=== PATIENT | female | born 1935 | race Caucasian/White ===

== ENCOUNTER 2019-07-14 07:19 | Inpatient (IN) ==
[2019-07-14 07:55] LABS: Basophils % 0.5 % (0.0-0.8); Hematocrit 39.3 VOL% (35.7-47.0); Hemoglobin 13.2 GM/DL (12.0-16.0); Immature Granulocytes % 0.5 %; Immature Granulocytes Absolute 0.04 #; Lymphocytes # 0.6 10*3/uL (1.4-4.0); Lymphocytes % 7.1 % (21.3-54.2); Mean Corpuscular HGB Conc 33.6 GM/DL (32-36); Mean Corpuscular Volume 90.6 FL (87-102); Monocytes % 8.8 % (1.7-12.7); Neutrophils % 83.1 % (38.7-73.9); Platelet Count 199 T/CUMM (130-400); Red Blood Count 4.34 MC/CUMM (3.8-5.5); Red Cell Distribution Width 12.6 % (9.3-17.3); White Blood Count 7.8 T/CUMM (4-12)
[2019-07-14 08:02] LABS: PT Patient Result 11.3 SECS (9.6-12.2); Partial Thromboplastin Time 26.7 SECS (20.8-36.0)
[2019-07-14 08:29] LABS: Bilirubin,Total 0.6 MG/DL (0.2-1.0); Calcium 9.7 MG/DL (8.5-10.1); Osmolality,Calculated 259.6 MOS/KG (273-304)
[2019-07-14] MEDS ORDERED: DILTIAZEM INJ 100 MG in SODIUM CHLORIDE 0.9% 100 ML IV SCH (08:30)
[2019-07-14] MEDS ORDERED: DILTIAZEM 50 MG/10 ML VIAL IV STA (08:30)
[2019-07-14 09:26] LABS: Apearance,Urine CLEAR (Clear); Bacteria,Urine Occasional /HPF (Few); Bilirubin,Urine Negative (Negative); Blood, Urine Large mg/dL (Negative); Glucose,Urine (UA) 150 mg/dL (Negative); Ketones,Urine 5 mg/dL (Negative); Mucus,Urine Occasional /LPF (Occasional); Nitrite,Urine Negative (Negative); Protein,Urine 100 MG/DL; RBC,Urine 50 /HPF (0-4); Squamous Epithelial Cell,Urine Occasional /HPF (0-10); Urine Color Yellow (Yellow); Urine Specific Gravity 1.018 (1.001-1.035); Urine Urobilinogen < 2.0 EU/DL (0.2-1.0); WBC,Urine <1 /HPF (0-6)
[2019-07-14] MEDS ORDERED: cefTRIAXone 1,000 MG in SODIUM CHLORIDE 0.9% 100 ML IV STA (09:35)
[2019-07-14] MEDS ORDERED: ACETAMINOPHEN 325 MG TABLET PO PRN (09:45)
[2019-07-14] MEDS ORDERED: ONDANSETRON 4 MG/2 ML VIAL IV PRN (09:45)
[2019-07-14] MEDS ORDERED: NITROGLYCERIN SL 0.4 MG TABLET SL PRN (09:47)
[2019-07-14] MEDS ORDERED: SODIUM CHLORIDE 0.45% 1,000 ML IV SCH (10:00)
[2019-07-14] MEDS ORDERED: GLUCAGON 1 MG VIAL IM PRN (11:06)
[2019-07-14] MEDS ORDERED: DEXTROSE 10% 250 ML BAG IV PRN (11:06)
[2019-07-14] MEDS ORDERED: ENOXAPARIN 40 MG/0.4 ML SYRINGE SUBCUT SCH (13:00)
[2019-07-14] MEDS: INSULIN LISPRO 100 UNIT/ML SUBCUT SCH ×3 (13:34→20:42)
[2019-07-14] MEDS: dilTIAZem Drip 125 MG/125 ML PREMIX IV SCH ×2 (14:24→18:10)
[2019-07-14] MEDS: POTASSIUM CHLORIDE 20 MEQ TABLET PO PRN ×2 (15:55→20:41)
[2019-07-14] MEDS ORDERED: POTASSIUM CHLORIDE 20 MEQ TABLET PO ONE (15:58)
[2019-07-14] MEDS ORDERED: FUROSEMIDE 20 MG/2 ML VIAL IV ONE (16:05)
[2019-07-14] MEDS: SODIUM CHLORIDE 0.9% 1,000 ML IV SCH (16:31)
[2019-07-14] MEDS ORDERED: MAGNESIUM SULF RIDER 2 GM in PREMIX 1 EACH IV ONE (19:00)
[2019-07-14] MEDS: FLECAINIDE 50 MG TABLET PO SCH (20:42)
[2019-07-14] MEDS: lisinopriL 20 MG TABLET PO SCH (20:42)
[2019-07-14] MEDS: DOCUSATE SODIUM 100 MG CAPSULE PO SCH (20:42)
[2019-07-14] MEDS: traZODone 50 MG TABLET PO SCH (20:42)
[2019-07-14] MEDS: METOPROLOL SUCCINATE XL 50 MG TABLET PO SCH (20:42)
[2019-07-14] MEDS: SIMVASTATIN 20 MG TABLET PO SCH (20:42)
[2019-07-14] MEDS ORDERED: APIXABAN 2.5 MG TABLET PO SCH (21:00)
[2019-07-14] MEDS ORDERED: METOPROLOL SUCCINATE XL 25 MG TABLET PO SCH (21:00)
[2019-07-15] MEDS: SODIUM CHLORIDE 0.9% 1,000 ML IV SCH ×2 (04:36→14:56)
[2019-07-15 06:18] LABS: Basophils % 0.8 % (0.0-0.8); Eosinophils % 0.3 % (0.00-10.9); Hematocrit 36.7 VOL% (35.7-47.0); Hemoglobin 12.4 GM/DL (12.0-16.0); Immature Granulocytes % 0.3 %; Immature Granulocytes Absolute 0.01 #; Lymphocytes # 1.2 10*3/uL (1.4-4.0); Lymphocytes % 29.1 % (21.3-54.2); Mean Corpuscular HGB Conc 33.8 GM/DL (32-36); Mean Corpuscular Volume 89.7 FL (87-102); Mean Platelet Volume 9.4 FL (9.6-12.0); Monocytes % 20.5 % (1.7-12.7); Platelet Count 180 T/CUMM (130-400); Red Blood Count 4.09 MC/CUMM (3.8-5.5); Red Cell Distribution Width 12.9 % (9.3-17.3)
[2019-07-15 06:32] LABS: Calcium 8.5 MG/DL (8.5-10.1); Osmolality,Calculated 270.5 MOS/KG (273-304)
[2019-07-15 06:44] LABS: Eosinophils 2 % (0-10); Hypochromasia Slight; Lymphocytes 24 % (20-55); Ovalocytes Slight; Platelet Estimate Adequate; Segmented Neutrophils 51 % (50-85); Total Cells Counted 100
[2019-07-15] MEDS: ALBUTEROL/IPRATROPIUM 3 ML NEB RESP TX SCH ×3 (07:32→19:56)
[2019-07-15] MEDS: INSULIN LISPRO 100 UNIT/ML SUBCUT SCH ×4 (08:39→21:59)
[2019-07-15] MEDS ORDERED: CHLORTHALIDONE 25 MG TABLET PO SCH (09:00)
[2019-07-15] MEDS: PANTOPRAZOLE 40 MG TABLET PO SCH (09:51)
[2019-07-15] MEDS: POTASSIUM CHLORIDE 20 MEQ TABLET PO PRN (09:51)
[2019-07-15] MEDS: METOPROLOL SUCCINATE XL 50 MG TABLET PO SCH ×2 (09:51→21:54)
[2019-07-15] MEDS: lisinopriL 20 MG TABLET PO SCH ×2 (09:51→21:54)
[2019-07-15] MEDS: FLECAINIDE 50 MG TABLET PO SCH ×2 (09:51→21:55)
[2019-07-15] MEDS: DOCUSATE SODIUM 100 MG CAPSULE PO SCH ×2 (09:51→21:54)
[2019-07-15] MEDS: APIXABAN 2.5 MG TABLET PO SCH ×2 (09:52→21:55)
[2019-07-15] MEDS: CITALOPRAM 20 MG TABLET PO SCH (09:52)
[2019-07-15] MEDS: cefTRIAXone 500 MG in SYRINGE 1 EACH IV SCH (10:00)
[2019-07-15] MEDS: OSELTAMIVIR 75 MG CAPSULE PO SCH ×2 (12:26→21:54)
[2019-07-15] MEDS: dilTIAZem Drip 125 MG/125 ML PREMIX IV SCH (15:00)
[2019-07-15] MEDS: traZODone 50 MG TABLET PO SCH (21:54)
[2019-07-15] MEDS: DILTIAZEM CD 120 MG CAPSULE PO SCH (21:55)
[2019-07-15] MEDS: SIMVASTATIN 20 MG TABLET PO SCH (21:55)
[2019-07-16] MEDS: SODIUM CHLORIDE 0.9% 1,000 ML IV SCH (00:35)
[2019-07-16] MEDS: ALBUTEROL/IPRATROPIUM 3 ML NEB RESP TX SCH ×4 (00:35→20:30)
[2019-07-16] MEDS: INSULIN LISPRO 100 UNIT/ML SUBCUT SCH ×4 (08:12→21:48)
[2019-07-16] MEDS: FLECAINIDE 50 MG TABLET PO SCH ×2 (09:23→21:50)
[2019-07-16] MEDS: lisinopriL 20 MG TABLET PO SCH ×2 (09:23→21:49)
[2019-07-16] MEDS: PANTOPRAZOLE 40 MG TABLET PO SCH (09:24)
[2019-07-16] MEDS: METOPROLOL SUCCINATE XL 50 MG TABLET PO SCH ×2 (09:24→21:51)
[2019-07-16] MEDS: DILTIAZEM CD 120 MG CAPSULE PO SCH ×2 (09:24→21:48)
[2019-07-16] MEDS: POTASSIUM CHLORIDE 20 MEQ TABLET PO PRN (09:24)
[2019-07-16] MEDS: CITALOPRAM 20 MG TABLET PO SCH (09:24)
[2019-07-16] MEDS: OSELTAMIVIR 75 MG CAPSULE PO SCH ×2 (09:25→21:50)
[2019-07-16] MEDS: APIXABAN 2.5 MG TABLET PO SCH ×2 (09:25→21:50)
[2019-07-16] MEDS: DOCUSATE SODIUM 100 MG CAPSULE PO SCH ×2 (09:25→21:50)
[2019-07-16] MEDS: cefTRIAXone 500 MG in SYRINGE 1 EACH IV SCH (10:05)
[2019-07-16] MEDS: traZODone 50 MG TABLET PO SCH (21:49)
[2019-07-16] MEDS: SIMVASTATIN 20 MG TABLET PO SCH (21:51)
[2019-07-17] MEDS: ALBUTEROL/IPRATROPIUM 3 ML NEB RESP TX SCH ×4 (01:05→19:09)
[2019-07-17 06:14] LABS: Basophils % 0.4 % (0.0-0.8); Eosinophils # 0.1 10*3/uL (0.0-0.87); Eosinophils % 1.1 % (0.00-10.9); Hematocrit 34.5 VOL% (35.7-47.0); Hemoglobin 11.2 GM/DL (12.0-16.0); Immature Granulocytes % 0.7 %; Immature Granulocytes Absolute 0.03 #; Lymphocytes # 1.7 10*3/uL (1.4-4.0); Lymphocytes % 37.3 % (21.3-54.2); Mean Corpuscular HGB Conc 32.5 GM/DL (32-36); Mean Corpuscular Volume 93.8 FL (87-102); Mean Platelet Volume 9.1 FL (9.6-12.0); Neutrophils % 48.5 % (38.7-73.9); Platelet Count 165 T/CUMM (130-400); Red Blood Count 3.68 MC/CUMM (3.8-5.5); Red Cell Distribution Width 12.9 % (9.3-17.3); White Blood Count 4.6 T/CUMM (4-12)
[2019-07-17 06:36] LABS: Calcium 8.9 MG/DL (8.5-10.1)
[2019-07-17] MEDS: METOPROLOL SUCCINATE XL 50 MG TABLET PO SCH ×2 (09:34→21:24)
[2019-07-17] MEDS: lisinopriL 20 MG TABLET PO SCH ×2 (09:34→21:23)
[2019-07-17] MEDS: DOCUSATE SODIUM 100 MG CAPSULE PO SCH ×2 (09:34→21:24)
[2019-07-17] MEDS: DILTIAZEM CD 120 MG CAPSULE PO SCH ×2 (09:34→21:23)
[2019-07-17] MEDS: APIXABAN 2.5 MG TABLET PO SCH (09:35)
[2019-07-17] MEDS: POTASSIUM CHLORIDE 20 MEQ TABLET PO PRN (09:35)
[2019-07-17] MEDS: CITALOPRAM 20 MG TABLET PO SCH (09:36)
[2019-07-17] MEDS: OSELTAMIVIR 75 MG CAPSULE PO SCH ×2 (09:37→21:23)
[2019-07-17] MEDS: FLECAINIDE 50 MG TABLET PO SCH ×2 (09:37→21:23)
[2019-07-17] MEDS: PANTOPRAZOLE 40 MG TABLET PO SCH (09:37)
[2019-07-17] MEDS: cefTRIAXone 500 MG in SYRINGE 1 EACH IV SCH (09:41)
[2019-07-17] MEDS: INSULIN LISPRO 100 UNIT/ML SUBCUT SCH ×4 (12:32→21:24)
[2019-07-17] MEDS: SIMVASTATIN 20 MG TABLET PO SCH (21:23)
[2019-07-17] MEDS: traZODone 50 MG TABLET PO SCH (21:24)
[2019-07-18] MEDS: ALBUTEROL/IPRATROPIUM 3 ML NEB RESP TX SCH ×4 (00:55→19:03)
[2019-07-18 04:30] LABS: Basophils % 0.4 % (0.0-0.8); Eosinophils # 0.1 10*3/uL (0.0-0.87); Eosinophils % 1.4 % (0.00-10.9); Hematocrit 36.1 VOL% (35.7-47.0); Immature Granulocytes % 0.2 %; Immature Granulocytes Absolute 0.01 #; Lymphocytes # 1.9 10*3/uL (1.4-4.0); Lymphocytes % 34.3 % (21.3-54.2); Mean Corpuscular HGB Conc 33.2 GM/DL (32-36); Mean Corpuscular Volume 90.7 FL (87-102); Mean Platelet Volume 8.9 FL (9.6-12.0); Monocytes % 9.8 % (1.7-12.7); Neutrophils % 53.9 % (38.7-73.9); Platelet Count 174 T/CUMM (130-400); Red Blood Count 3.98 MC/CUMM (3.8-5.5); Red Cell Distribution Width 12.9 % (9.3-17.3); White Blood Count 5.6 T/CUMM (4-12)
[2019-07-18 04:51] LABS: Hypochromasia 1+; Microcytosis Slight; Ovalocytes Slight
[2019-07-18 04:52] LABS: Platelet Estimate Adequate
[2019-07-18 05:09] LABS: PT Patient Result 10.5 SECS (9.6-12.2)
[2019-07-18 05:29] LABS: Calcium 8.9 MG/DL (8.5-10.1); Osmolality,Calculated 279.7 MOS/KG (273-304)
[2019-07-18] MEDS ORDERED: ceFAZolin 1,000 MG VIAL IRRIG ONE (06:00)
[2019-07-18] MEDS ORDERED: ceFAZolin 1,000 MG in SYRINGE 1 EACH IV ONE (06:00)
[2019-07-18] MEDS ORDERED: LIDOCAINE 1% 20 ML VIAL ONE (07:10)
[2019-07-18] MEDS ORDERED: HEPARIN/NACL 0.9% 2 UNITS/ML 500 ML IV ONE (07:10)
[2019-07-18] MEDS ORDERED: ceFAZolin 1,000 MG VIAL ONE (07:11)
[2019-07-18] MEDS ORDERED: fentaNYL 100 MCG/2 ML VIAL ONE ×2 (08:21→08:34)
[2019-07-18] MEDS ORDERED: MIDAZOLAM 2 MG/2 ML VIAL ONE ×2 (08:21→08:34)
[2019-07-18] MEDS ORDERED: TISSUE ADHESIVE 1 EACH APPLICATOR TOP ONE (08:45)
[2019-07-18] MEDS: INSULIN LISPRO 100 UNIT/ML SUBCUT SCH ×4 (10:09→21:52)
[2019-07-18] MEDS: OSELTAMIVIR 75 MG CAPSULE PO SCH ×2 (10:10→21:54)
[2019-07-18] MEDS: CITALOPRAM 20 MG TABLET PO SCH (10:10)
[2019-07-18] MEDS: METOPROLOL TARTRATE 100 MG TABLET PO SCH ×2 (10:11→21:53)
[2019-07-18] MEDS: DOCUSATE SODIUM 100 MG CAPSULE PO SCH ×2 (10:11→21:53)
[2019-07-18] MEDS: PANTOPRAZOLE 40 MG TABLET PO SCH (10:11)
[2019-07-18] MEDS: lisinopriL 20 MG TABLET PO SCH ×2 (10:11→21:54)
[2019-07-18] MEDS: DILTIAZEM CD 120 MG CAPSULE PO SCH ×3 (10:11→21:54)
[2019-07-18] MEDS: cefTRIAXone 500 MG in SYRINGE 1 EACH IV SCH (10:14)
[2019-07-18] MEDS: METOPROLOL SUCCINATE XL 50 MG TABLET PO SCH (10:32)
[2019-07-18] MEDS: FLECAINIDE 50 MG TABLET PO SCH (10:32)
[2019-07-18] MEDS: ceFAZolin 1,000 MG in SYRINGE 1 EACH IV SCH (15:23)
[2019-07-18] MEDS: POTASSIUM CHLORIDE 20 MEQ TABLET PO PRN ×2 (15:23→17:34)
[2019-07-18] MEDS: oxyCODONE/ACETAMINOPHEN 5-325 MG TABLET PO PRN ×2 (16:28→22:02)
[2019-07-18] MEDS ORDERED: SIMVASTATIN 10 MG TABLET PO SCH (21:00)
[2019-07-18] MEDS: traZODone 50 MG TABLET PO SCH (21:53)
[2019-07-19] MEDS: ceFAZolin 1,000 MG in SYRINGE 1 EACH IV SCH (00:16)
[2019-07-19] MEDS: ALBUTEROL/IPRATROPIUM 3 ML NEB RESP TX SCH (01:40)
[2019-07-19 04:56] LABS: Basophils % 0.4 % (0.0-0.8); Eosinophils # 0.1 10*3/uL (0.0-0.87); Eosinophils % 0.8 % (0.00-10.9); Hematocrit 35.6 VOL% (35.7-47.0); Hemoglobin 11.4 GM/DL (12.0-16.0); Immature Granulocytes % 0.3 %; Immature Granulocytes Absolute 0.02 #; Lymphocytes # 1.9 10*3/uL (1.4-4.0); Lymphocytes % 26.6 % (21.3-54.2); Mean Corpuscular Volume 93.7 FL (87-102); Mean Platelet Volume 9.2 FL (9.6-12.0); Neutrophils % 59.9 % (38.7-73.9); Platelet Count 178 T/CUMM (130-400); Red Cell Distribution Width 13.1 % (9.3-17.3); White Blood Count 7.1 T/CUMM (4-12)
[2019-07-19 05:20] LABS: Band Neutrophils 1 % (0-10); Lymphocytes 29 % (20-55); Microcytosis Slight; Ovalocytes Slight; Platelet Estimate Adequate; Segmented Neutrophils 60 % (50-85); Total Cells Counted 100
[2019-07-19 05:28] LABS: Calcium 9.1 MG/DL (8.5-10.1)
[2019-07-19] MEDS: oxyCODONE/ACETAMINOPHEN 5-325 MG TABLET PO PRN (07:15)
[2019-07-19 08:03] VITALS: BP 173/68
[2019-07-19] MEDS: INSULIN LISPRO 100 UNIT/ML SUBCUT SCH (08:22)
[2019-07-19] MEDS: METOPROLOL TARTRATE 100 MG TABLET PO SCH (08:23)
[2019-07-19] MEDS: lisinopriL 20 MG TABLET PO SCH (08:23)
[2019-07-19] MEDS: DILTIAZEM CD 120 MG CAPSULE PO SCH (08:23)
[2019-07-19] MEDS: PANTOPRAZOLE 40 MG TABLET PO SCH (08:23)
[2019-07-19] MEDS: OSELTAMIVIR 75 MG CAPSULE PO SCH (08:24)
[2019-07-19] MEDS: CITALOPRAM 20 MG TABLET PO SCH (08:24)
[2019-07-19] MEDS: cefTRIAXone 500 MG in SYRINGE 1 EACH IV SCH (08:24)
[2019-07-19] MEDS: DOCUSATE SODIUM 100 MG CAPSULE PO SCH (08:24)
== END 2019-07-19 10:15 | disposition home or self-care (01) | DRG 242 ==
LOC: N.ED 07:19 → N.EDINP 09:45 → N.TELES 10:00
PROVIDERS: ADMIT Family Medicine; ATTEND Family Medicine

== ENCOUNTER 2020-03-17 11:50 | Observation (INO) ==
[2020-03-17] MEDS ORDERED: SODIUM CHLORIDE 0.9% 1,000 ML IV STA (13:35)
[2020-03-17 13:59] LABS: Basophils % 0.5 % (0.0-0.8); Eosinophils % 0.2 % (0.00-10.9); Hematocrit 42.3 VOL% (35.7-47.0); Hemoglobin 14.2 GM/DL (12.0-16.0); Immature Granulocytes % 0.5 %; Immature Granulocytes Absolute 0.04 #; Lymphocytes # 1.2 10*3/uL (1.4-4.0); Lymphocytes % 14.2 % (21.3-54.2); Mean Corpuscular HGB Conc 33.6 GM/DL (32-36); Mean Corpuscular Volume 90.8 FL (87-102); Mean Platelet Volume 9.6 FL (9.6-12.0); Monocytes % 6.7 % (1.7-12.7); Neutrophils % 77.9 % (38.7-73.9); Platelet Count 260 T/CUMM (130-400); Red Blood Count 4.66 MC/CUMM (3.8-5.5); Red Cell Distribution Width 12.7 % (9.3-17.3); White Blood Count 8.6 T/CUMM (4-12)
[2020-03-17 14:09] LABS: INR 1.1; PT Patient Result 11.3 SECS (9.8-11.9)
[2020-03-17 14:14] LABS: Albumin 3.9 G/DL (3.4-5.0); Bilirubin,Total 0.4 MG/DL (0.2-1.0); Calcium 9.3 MG/DL (8.5-10.1); Osmolality,Calculated 285.2 MOS/KG (273-304); Total Protein 7.7 G/DL (6.4-8.3)
[2020-03-17] MEDS ORDERED: ACETAMINOPHEN 325 MG TABLET PO PRN (14:23)
[2020-03-17] MEDS ORDERED: ONDANSETRON 4 MG/2 ML VIAL IV PRN (14:23)
[2020-03-17 14:30] LABS: Bacteria,Urine Occasional /HPF (Few); Bilirubin,Urine Negative (Negative); Blood, Urine Moderate mg/dL (Negative); Glucose,Urine (UA) Negative (Negative); Hyaline Casts,Urine 64 /LPF (0-3); Ketones,Urine Negative (Negative); Mucus,Urine Occasional /LPF (Occasional); Nitrite,Urine Negative (Negative); Protein,Urine Negative; RBC,Urine 5 /HPF (0-4); Squamous Epithelial Cell,Urine Occasional /HPF (0-10); Urine Appearance CLEAR (Clear); Urine Color Yellow (Yellow); Urine Specific Gravity 1.017 (1.001-1.035); Urine Urobilinogen < 2.0 EU/DL (0.2-1.0); WBC,Urine <1 /HPF (0-6)
[2020-03-17] MEDS ORDERED: GLUCAGON 1 MG VIAL IM PRN (17:11)
[2020-03-17] MEDS ORDERED: DEXTROSE 50% 25 GM/50 ML VIAL IV PRN (17:11)
[2020-03-17] MEDS: SODIUM CHLORIDE 0.9% 1,000 ML IV SCH (18:25)
[2020-03-17] MEDS: metFORMIN 500 MG TABLET PO SCH (21:26)
[2020-03-17] MEDS: traZODone 50 MG TABLET PO SCH (21:26)
[2020-03-17] MEDS: METOPROLOL SUCCINATE XL 25 MG TABLET PO SCH (21:26)
[2020-03-17] MEDS: FLECAINIDE 50 MG TABLET PO SCH (21:26)
[2020-03-17] MEDS: DOCUSATE SODIUM 100 MG CAPSULE PO SCH (21:26)
[2020-03-17] MEDS: SIMVASTATIN 20 MG TABLET PO SCH (21:26)
[2020-03-17] MEDS: lisinopriL 20 MG TABLET PO SCH (21:26)
[2020-03-17] MEDS: APIXABAN 2.5 MG TABLET PO SCH (21:26)
[2020-03-17] MEDS: INSULIN LISPRO 100 UNIT/ML SUBCUT SCH (21:27)
[2020-03-18 06:02] LABS: Calcium 8.6 MG/DL (8.5-10.1); Osmolality,Calculated 283.7 MOS/KG (273-304)
[2020-03-18] MEDS: SODIUM CHLORIDE 0.9% 1,000 ML IV SCH ×3 (06:28→13:33)
[2020-03-18] MEDS: PANTOPRAZOLE 40 MG TABLET PO SCH (08:40)
[2020-03-18] MEDS: FLECAINIDE 50 MG TABLET PO SCH ×2 (08:41→21:28)
[2020-03-18] MEDS: ASPIRIN EC 81 MG TABLET PO SCH (08:42)
[2020-03-18] MEDS: MULTIVITAMIN (CENTRUM) TABLET PO SCH (08:42)
[2020-03-18] MEDS: APIXABAN 2.5 MG TABLET PO SCH ×2 (08:42→21:26)
[2020-03-18] MEDS: metFORMIN 500 MG TABLET PO SCH ×2 (08:42→21:26)
[2020-03-18] MEDS: CITALOPRAM 20 MG TABLET PO SCH (08:43)
[2020-03-18] MEDS: DOCUSATE SODIUM 100 MG CAPSULE PO SCH ×2 (08:43→21:26)
[2020-03-18] MEDS: lisinopriL 20 MG TABLET PO SCH ×2 (08:45→21:27)
[2020-03-18] MEDS: INSULIN LISPRO 100 UNIT/ML SUBCUT SCH ×4 (08:45→21:30)
[2020-03-18] MEDS: METOPROLOL SUCCINATE XL 25 MG TABLET PO SCH ×2 (08:45→21:27)
[2020-03-18] MEDS ORDERED: FLECAINIDE 50 MG TABLET PO ONE (12:50)
[2020-03-18] MEDS: SIMVASTATIN 20 MG TABLET PO SCH (21:26)
[2020-03-18] MEDS: traZODone 50 MG TABLET PO SCH (21:31)
[2020-03-19] MEDS: SODIUM CHLORIDE 0.9% 1,000 ML IV SCH ×2 (02:58→12:18)
[2020-03-19 05:21] LABS: Basophils % 0.4 % (0.0-0.8); Eosinophils # 0.1 10*3/uL (0.0-0.87); Eosinophils % 1.3 % (0.00-10.9); Hematocrit 36.6 VOL% (35.7-47.0); Hemoglobin 12.6 GM/DL (12.0-16.0); Immature Granulocytes % 0.4 %; Immature Granulocytes Absolute 0.03 #; Mean Corpuscular HGB Conc 34.4 GM/DL (32-36); Mean Corpuscular Volume 89.5 FL (87-102); Mean Platelet Volume 9.2 FL (9.6-12.0); Monocytes % 9.8 % (1.7-12.7); Neutrophils % 64.1 % (38.7-73.9); Platelet Count 199 T/CUMM (130-400); Red Blood Count 4.09 MC/CUMM (3.8-5.5); Red Cell Distribution Width 12.7 % (9.3-17.3); White Blood Count 8.3 T/CUMM (4-12)
[2020-03-19 05:44] LABS: Calcium 8.6 MG/DL (8.5-10.1); Osmolality,Calculated 282.7 MOS/KG (273-304)
[2020-03-19] MEDS ORDERED: MAGNESIUM SULF RIDER 2 GM in PREMIX 1 EACH IV PRN (07:54)
[2020-03-19] MEDS ORDERED: MAGNESIUM SULF RIDER 4 GM in PREMIX 1 EACH IV PRN (07:54)
[2020-03-19] MEDS: FLECAINIDE 50 MG TABLET PO SCH (09:23)
[2020-03-19] MEDS: ASPIRIN EC 81 MG TABLET PO SCH (09:23)
[2020-03-19] MEDS: APIXABAN 2.5 MG TABLET PO SCH ×2 (09:23→21:16)
[2020-03-19] MEDS: CITALOPRAM 20 MG TABLET PO SCH (09:23)
[2020-03-19] MEDS: lisinopriL 20 MG TABLET PO SCH ×2 (09:23→21:16)
[2020-03-19] MEDS: INSULIN LISPRO 100 UNIT/ML SUBCUT SCH ×4 (09:23→21:21)
[2020-03-19] MEDS: METOPROLOL SUCCINATE XL 25 MG TABLET PO SCH (09:23)
[2020-03-19] MEDS: MULTIVITAMIN (CENTRUM) TABLET PO SCH (09:24)
[2020-03-19] MEDS: DOCUSATE SODIUM 100 MG CAPSULE PO SCH ×2 (09:24→21:16)
[2020-03-19] MEDS: PANTOPRAZOLE 40 MG TABLET PO SCH (09:24)
[2020-03-19] MEDS: metFORMIN 500 MG TABLET PO SCH ×2 (09:24→21:16)
[2020-03-19] MEDS ORDERED: LIDOCAINE 2% 5 ML VIAL ONE (13:31)
[2020-03-19] MEDS ORDERED: propofoL 200 MG/20 ML VIAL IV ONE (13:31)
[2020-03-19] MEDS ORDERED: METOPROLOL SUCCINATE XL 25 MG TABLET PO ONE (13:57)
[2020-03-19] MEDS: traZODone 50 MG TABLET PO SCH (21:16)
[2020-03-19] MEDS: METOPROLOL SUCCINATE XL 50 MG TABLET PO SCH (21:16)
[2020-03-19] MEDS: SIMVASTATIN 20 MG TABLET PO SCH (21:16)
[2020-03-20 05:53] LABS: Basophils # 0.1 10*3/uL (0.0-0.2); Basophils % 0.6 % (0.0-0.8); Eosinophils # 0.2 10*3/uL (0.0-0.87); Eosinophils % 1.8 % (0.00-10.9); Hematocrit 34.9 VOL% (35.7-47.0); Hemoglobin 11.6 GM/DL (12.0-16.0); Immature Granulocytes % 0.4 %; Immature Granulocytes Absolute 0.03 #; Lymphocytes # 2.2 10*3/uL (1.4-4.0); Lymphocytes % 26.1 % (21.3-54.2); Mean Corpuscular HGB Conc 33.2 GM/DL (32-36); Mean Corpuscular Volume 91.1 FL (87-102); Mean Platelet Volume 9.4 FL (9.6-12.0); Neutrophils % 60.1 % (38.7-73.9); Platelet Count 191 T/CUMM (130-400); Red Blood Count 3.83 MC/CUMM (3.8-5.5); Red Cell Distribution Width 12.9 % (9.3-17.3); White Blood Count 8.5 T/CUMM (4-12)
[2020-03-20 06:10] LABS: Calcium 8.7 MG/DL (8.5-10.1); Osmolality,Calculated 280.7 MOS/KG (273-304)
[2020-03-20 06:10] LABS: Calcium 8.8 MG/DL (8.5-10.1); Osmolality,Calculated 281.5 MOS/KG (273-304)
[2020-03-20 09:19] VITALS: BP 136/64
[2020-03-20] MEDS: ASPIRIN EC 81 MG TABLET PO SCH (09:21)
[2020-03-20] MEDS: MULTIVITAMIN (CENTRUM) TABLET PO SCH (09:21)
[2020-03-20] MEDS: lisinopriL 20 MG TABLET PO SCH (09:22)
[2020-03-20] MEDS: METOPROLOL SUCCINATE XL 50 MG TABLET PO SCH (09:22)
[2020-03-20] MEDS: APIXABAN 2.5 MG TABLET PO SCH (09:22)
[2020-03-20] MEDS: metFORMIN 500 MG TABLET PO SCH (09:22)
[2020-03-20] MEDS: CITALOPRAM 20 MG TABLET PO SCH (09:22)
[2020-03-20] MEDS: PANTOPRAZOLE 40 MG TABLET PO SCH (09:22)
[2020-03-20] MEDS: DOCUSATE SODIUM 100 MG CAPSULE PO SCH (09:23)
[2020-03-20] MEDS: INSULIN LISPRO 100 UNIT/ML SUBCUT SCH (09:25)
== END 2020-03-20 11:02 | disposition home or self-care (01) ==
LOC: N.ED 11:50 → N.EDINP 11:50 → N.TELEN 15:32
PROVIDERS: ADMIT Family Medicine; ATTEND Emergency Medicine

== ENCOUNTER 2021-10-21 12:56 | Observation (INO) ==
[2021-10-21] MEDS ORDERED: ACETAMINOPHEN 325 MG TABLET PO PRN ×2 (14:50→16:40)
[2021-10-21] MEDS ORDERED: ONDANSETRON 4 MG/2 ML VIAL IV PRN ×2 (14:50→16:40)
[2021-10-21] MEDS: SODIUM CHLORIDE 0.9% 1,000 ML IV SCH (16:24)
[2021-10-21] MEDS ORDERED: SODIUM CHLORIDE 0.9% 1,000 ML IV SCH (16:40)
[2021-10-21] MEDS ORDERED: GLUCAGON 1 MG VIAL IM PRN (17:23)
[2021-10-21] MEDS ORDERED: DEXTROSE 10% 250 ML BAG IV PRN (17:31)
[2021-10-21 18:05] LABS: Basophils % 0.5 % (0.0-0.8); Eosinophils # 0.1 10*3/uL (0.0-0.87); Eosinophils % 0.6 % (0.00-10.9); Hematocrit 32.8 VOL% (35.7-47.0); Hemoglobin 11.1 GM/DL (12.0-16.0); Immature Granulocytes % 0.6 %; Immature Granulocytes Absolute 0.05 #; Lymphocytes # 1.3 10*3/uL (1.4-4.0); Mean Corpuscular HGB Conc 33.8 GM/DL (32-36); Mean Corpuscular Volume 90.1 FL (87-102); Mean Platelet Volume 9.1 FL (9.6-12.0); Monocytes # 0.8 10*3/uL (0.11-0.8); Monocytes % 10.8 % (1.7-12.7); Neutrophils % 70.5 % (38.7-73.9); Platelet Count 185 T/CUMM (130-400); Red Blood Count 3.64 MC/CUMM (3.8-5.5); Red Cell Distribution Width 13.9 % (9.3-17.3); White Blood Count 7.8 T/CUMM (4-12)
[2021-10-21 18:25] LABS: Albumin 3.4 G/DL (3.4-5.0); Bilirubin,Total 0.5 MG/DL (0.20-1.00); Calcium 8.8 MG/DL (8.5-10.1); Potassium 3.6 MMOL/L (3.5-5.1); Total Protein 6.8 G/DL (6.4-8.2)
[2021-10-21] MEDS ORDERED: DOCUSATE SODIUM 100 MG CAPSULE PO SCH (21:00)
[2021-10-21] MEDS: metFORMIN 500 MG TABLET PO SCH (21:29)
[2021-10-21] MEDS: METOPROLOL SUCCINATE XL 50 MG TABLET PO SCH (21:29)
[2021-10-21] MEDS: FLECAINIDE 50 MG TABLET PO SCH (21:29)
[2021-10-21] MEDS: traZODone 50 MG TABLET PO SCH (21:29)
[2021-10-21] MEDS: AMIODARONE 200 MG TABLET PO SCH (21:29)
[2021-10-21] MEDS: SIMVASTATIN 20 MG TABLET PO SCH (21:30)
[2021-10-21] MEDS: lisinopriL 20 MG TABLET PO SCH (21:30)
[2021-10-21] MEDS: DOCUSATE SODIUM 100 MG CAPSULE PO SCH (21:30)
[2021-10-21] MEDS: APIXABAN 2.5 MG TABLET PO SCH (21:30)
[2021-10-21] MEDS: METHOCARBAMOL 500 MG TABLET PO SCH (21:30)
[2021-10-21] MEDS: INSULIN REGULAR 100 UNIT/ML SUBCUT SCH (22:16)
[2021-10-22 06:25] LABS: Basophils % 0.4 % (0.0-0.8); Eosinophils # 0.1 10*3/uL (0.0-0.87); Eosinophils % 1.2 % (0.00-10.9); Hemoglobin 11.1 GM/DL (12.0-16.0); Immature Granulocytes % 0.6 %; Immature Granulocytes Absolute 0.05 #; Lymphocytes # 0.9 10*3/uL (1.4-4.0); Lymphocytes % 11.3 % (21.3-54.2); Mean Corpuscular HGB Conc 32.6 GM/DL (32-36); Mean Corpuscular Volume 92.4 FL (87-102); Mean Platelet Volume 9.3 FL (9.6-12.0); Monocytes # 0.8 10*3/uL (0.11-0.8); Monocytes % 10.3 % (1.7-12.7); Neutrophils % 76.2 % (38.7-73.9); Platelet Count 197 T/CUMM (130-400); Red Blood Count 3.68 MC/CUMM (3.8-5.5); Red Cell Distribution Width 14.3 % (9.3-17.3); White Blood Count 7.8 T/CUMM (4-12)
[2021-10-22 06:40] LABS: Calcium 8.9 MG/DL (8.5-10.1); Osmolality,Calculated 277.1 MOS/KG (273-304); Potassium 3.8 MMOL/L (3.5-5.1)
[2021-10-22] MEDS: LIDOCAINE 5% PATCH TRANSDERM SCH (09:17)
[2021-10-22] MEDS: CITALOPRAM 20 MG TABLET PO SCH (09:17)
[2021-10-22] MEDS: DOCUSATE SODIUM 100 MG CAPSULE PO SCH ×2 (09:17→20:26)
[2021-10-22] MEDS: AMIODARONE 200 MG TABLET PO SCH ×2 (09:18→20:26)
[2021-10-22] MEDS: METHOCARBAMOL 500 MG TABLET PO SCH ×2 (09:18→20:26)
[2021-10-22] MEDS: METOPROLOL SUCCINATE XL 50 MG TABLET PO SCH ×2 (09:18→20:25)
[2021-10-22] MEDS: AMOXICILLIN/CLAV 500 MG TABLET PO SCH ×2 (09:18→20:26)
[2021-10-22] MEDS: metFORMIN 500 MG TABLET PO SCH ×2 (09:18→20:26)
[2021-10-22] MEDS: ASPIRIN EC 81 MG TABLET PO SCH (09:18)
[2021-10-22] MEDS: APIXABAN 2.5 MG TABLET PO SCH ×2 (09:18→20:25)
[2021-10-22] MEDS: CHLORTHALIDONE 25 MG TABLET PO SCH (09:18)
[2021-10-22] MEDS: FLECAINIDE 50 MG TABLET PO SCH ×2 (09:18→20:26)
[2021-10-22] MEDS: lisinopriL 20 MG TABLET PO SCH ×2 (09:18→20:26)
[2021-10-22] MEDS: INSULIN REGULAR 100 UNIT/ML SUBCUT SCH ×4 (09:22→21:08)
[2021-10-22] MEDS ORDERED: BUPIVACAINE 0.5% 50 ML VIAL NERVEBLOCK ONE (10:40)
[2021-10-22] MEDS ORDERED: DEXAMETHASONE 20 MG/5 ML VIAL MISC INJ ONE (10:40)
[2021-10-22] MEDS ORDERED: TRIAMCINOLONE ACETONIDE 40 MG/1 ML VIAL MISC INJ ONE (11:30)
[2021-10-22] MEDS: SODIUM CHLORIDE 0.9% 1,000 ML IV SCH ×2 (16:45→19:13)
[2021-10-22] MEDS: SIMVASTATIN 20 MG TABLET PO SCH (20:25)
[2021-10-22] MEDS: traZODone 50 MG TABLET PO SCH (20:25)
[2021-10-23] MEDS: SODIUM CHLORIDE 0.9% 1,000 ML IV SCH (03:10)
[2021-10-23 07:59] VITALS: BP 156/59
[2021-10-23] MEDS: INSULIN REGULAR 100 UNIT/ML SUBCUT SCH (08:15)
[2021-10-23] MEDS: CITALOPRAM 20 MG TABLET PO SCH (08:42)
[2021-10-23] MEDS: ASPIRIN EC 81 MG TABLET PO SCH (08:42)
[2021-10-23] MEDS: DOCUSATE SODIUM 100 MG CAPSULE PO SCH (08:43)
[2021-10-23] MEDS: METHOCARBAMOL 500 MG TABLET PO SCH (08:43)
[2021-10-23] MEDS: AMIODARONE 200 MG TABLET PO SCH (08:43)
[2021-10-23] MEDS: AMOXICILLIN/CLAV 500 MG TABLET PO SCH (08:43)
[2021-10-23] MEDS: METOPROLOL SUCCINATE XL 50 MG TABLET PO SCH (08:44)
[2021-10-23] MEDS: lisinopriL 20 MG TABLET PO SCH (08:44)
[2021-10-23] MEDS: metFORMIN 500 MG TABLET PO SCH (08:44)
[2021-10-23] MEDS: APIXABAN 2.5 MG TABLET PO SCH (08:44)
[2021-10-23] MEDS: FLECAINIDE 50 MG TABLET PO SCH (08:44)
[2021-10-23] MEDS: LIDOCAINE 5% PATCH TRANSDERM SCH (08:45)
[2021-10-23] MEDS: CHLORTHALIDONE 25 MG TABLET PO SCH (08:46)
== END 2021-10-23 11:09 | disposition home or self-care (01) ==
LOC: EDUNIT# → EDBD → N.EDINP 12:56 → N.ED 12:56 → N.3E 17:00
PROVIDERS: ADMIT Family Medicine; ATTEND Family Medicine